=== PATIENT | female | born 1970 | race Caucasian/White ===

== ENCOUNTER 2022-11-27 22:20 | Observation (INO) ==
--- NOTE | 2022-11-27 22:27 | Emergency Department Note ---
Abdominal Pain HPI General Chief Complaint: Abdominal Pain Stated Complaint: upper abd. pain Time Seen by Provider: 11/27/22 22:27 Source: patient and family (Daughter present ) Mode of arrival: ambulatory Limitations: no limitations History of Present Illness HPI Narrative: Narrative: 52-year-old female presents to the emergency department complaining of abdominal pain. States it started 2 hours ago. Burning sensation. Constant. Epigastric area. Tried yogurt and that did not make it any better. Rates the pain as an 8 on a 0-to-10 scale. No radiation to the back. Not associated with trauma. States she had the same pain about 24 hours ago but it resolved. States she has had this pain a couple times in her life. Patient has nausea with this pain. Past medical history includes thyroid disease, hyperglycemia, migraines. Patient takes clonazepam. Social history: Patient smokes tobacco. Does not drink alcohol. Uses marijuana. Related Data Home Medications Medication Instructions Recorded Confirmed levothyroxine 88 mcg capsule 88 mcg PO QDAY 12/14/21 11/28/22 clonazepam 1 mg tablet 1 mg PO BID PRN Anxiety 11/28/22 11/28/22 Previous Rx's Medication Instructions Recorded prazosin 1 mg capsule 1 mg PO BID 30 days #60 caps 06/19/22 venlafaxine 150 mg 300 mg PO QDAY #60 caps 06/19/22 capsule,extended release 24 hr Allergies Allergy/AdvReac Type Severity Reaction Status Date / Time codeine Allergy Mild Vomiting Verified 06/19/22 08:28 Review of Systems ROS ROS Narrative: Narrative: Constitutional: Denies fever Eyes: Denies eye discharge ENT ED: Denies throat pain or rhinorrhea Cardiovascular: Denies chest pain Respiratory: Denies shortness of breath Gastrointestinal: Reports abdominal pain and nausea Genitourinary: Denies dysuria Musculoskeletal: Denies back pain Integumentary: Denies rash Neurological: Reports headache (History of migraines.) Psychiatric: Reports depression Endocrine: Reports other (Thyroid disorder.) [facility] Narrative Patient History Narrative: Narrative: Medical/Surgical/Family History All Active Problems Acute cholecystitis (Acute) Cholelithiasis (Acute) Right upper quadrant abdominal pain (Acute) Major depressive disorder, recurrent (Acute) Carpal tunnel syndrome (Chronic) Attempted suicide (Chronic) Other reactions to severe stress (Chronic) Generalized anxiety disorder (Acute) Personality disorder (Chronic) PTSD (post-traumatic stress disorder) (Chronic) Depression (Chronic) Anxiety (Chronic) Sinusitis (Acute) Influenza B (Acute) Medical History Anxiety Attempted suicide Carpal tunnel syndrome Depression Generalized anxiety disorder with panic attacks Other reactions to severe stress Personality disorder PTSD (post-traumatic stress disorder) Surgical History No pertinent past surgical history Family History Son ADHD, predominantly inattentive type Daughter ADHD (attention deficit hyperactivity disorder), combined type Sister Bipolar disorder, unspecified reportedly (he is 7 years younger than her) Sister Bipolar disorder, unspecified Other No pertinent family history Social History Smoking Status: Current every day smoker Alcohol Intake Frequency: holiday/special occasion only Substance Use: marijuana Exam Narrative Narrative: Narrative: General Limitations: no limitations General appearance: Present alert and in distress (Moderately severe discomfort) Head Head: Present atraumatic and normocephalic Eye Eye: Present normal appearance Neck Neck: Present normal inspection Chest Chest: Present symmetric chest wall rise Respiratory Respiratory: Present normal lung sounds bilaterally; Absent respiratory distress Cardiovascular Cardiovascular: Present regular rate and normal rhythm Adbominal Abdominal: Present soft and tenderness (Tenderness above the umbilicus and below the xiphoid and this midline.) Extremities Extremities: Present normal inspection Back Back: Present normal inspection; Absent tenderness Neurological Neurological: Present alert and oriented X3 Psychiatric Psychiatric: Present normal affect and normal mood Skin Skin: Present warm (WNL) and dry Course Reevaluation(s) Reevaluation #1: Patient is sleeping but easily awakened. States the pain is much better and does not want any additional pain medicine. Patient received half milligram of Dilaudid. I advised patient that we would keep her until the morning when we do an MRCP. I advised her that she will be NPO. I discussed all this in the presence of her daughter. I reviewed the results of the ultrasound which suggest acute cholecystitis and there is also blood test which shows elevated LFTs. Time: 01:02 Consultations Consultation #1: Discussed with the surgeon on-call Dr. Gordon. He advised that we need to get an MRCP. Asked that we keep the patient in the emergency department tonight until the morning when we can obtain that test and then call him with the results. Time: 00:30 Vital Signs Vital signs: Vital Signs Temperature 96.8 F L 11/27/22 22:21 Pulse Rate 65 11/27/22 22:21 Respiratory Rate 18 11/27/22 22:21 Blood Pressure 170/109 11/27/22 22:21 Pulse Oximetry (%) 99 11/27/22 22:21 Oxygen Delivery Method 11/27/22 22:21 Temperature 97.0 F 11/28/22 23:45 Pulse Rate 66 11/28/22 23:45 Respiratory Rate 14 11/28/22 23:45 Blood Pressure 143/95 11/28/22 23:45 Pulse Oximetry (%) 96 11/28/22 23:45 Oxygen Delivery Method 11/28/22 23:45 Oxygen Flow Rate (L/min) 0 11/28/22 20:00 [facility] MDM Narrative Medical decision making narrative: Narrative: Middle-aged female with a relatively acute onset abdominal pain 2 hours ago. Differential includes biliary disease, cholecystitis, peptic ulcer disease, pancreatitis, GERD, other Will obtain a lipase to evaluate for pancreatitis. Will obtain a hepatic panel to evaluate for cholecystitis or biliary disease. We will give the patient Protonix 40 mg IV because of the possibility of GERD. Will medicate patient with Dilaudid 0.5 mg along with Zofran 4 mg to address her immediate discomfort and nausea. Patient may require CT abdomen for further evaluation but I will wait until I evaluated blood test results and seen her response to therapy. Patient will be bolused 1 L of normal saline. White count is low at 3.6 with a normal hemoglobin at 13.1 and a normal differential. Lactic acid level was normal at 0.8. Electrolytes were normal. Glucose was elevated at 138 but the BUN and creatinine were both normal. Total bilirubin was elevated at 1.8 with a direct bili elevated at 1.1. AST was high at 798 and the ALT was high at 826. Lipase was normal. Ultrasound: Impression the findings suggest acute cholecystitis with intra and extrahepatic biliary ductal dilatation. Preliminary report. Case discussed with Dr. Gordon the general surgeon on-call. He requested the patient get an MRCP to look for possible distal common bile duct stone. That test will be performed in the morning. Ultrasound final report:IMPRESSION: Cholecystitis. Moderate common bile duct d ilatation suggest the possibility of distal common bile duct stone which is not visualized sonographically. I have signed the case out to my colleague Dr. Rodrigues who will follow-up on the MRCP results and advise the general surgeon. Sepsis Sepsis Identified: No Lab Data Result diagrams: 11/27/22 22:45 Labs: Lab Results 11/27/22 11/27/22 11/27/22 Range/Units 22:45 22:45 22:51 WBC 3.6 L (4.5-11.0) K/mcL RBC 4.75 (3.59-5.38) M/mcL Hgb 13.1 (11.2-15.7) g/dL Hct 39.7 (34.1-44.9) % POC Hct 41.0 (36-48) MCV 83.6 (80.0-100.0) fL MCH 27.6 (26.0-34.0) pg MCHC 33.0 (31.0-36.0) g/dL RDW 12.5 (11.5-14.5) % Plt Count 246 (140-440) K/mcL MPV 9.1 (8.8-12.5) fL Immature Gran % (Auto) 0 (0.0-0.5) % Neut % (Auto) 59.4 (38.0-78.0) % Lymph % (Auto) 29.7 (15.5-49.0) % [place] % (Auto) 10.9 (1.0-12.0) % Eos % (Auto) 0 (0.0-7.0) % Baso % (Auto) 0 (0.0-2.0) % Lymph # (Auto) 1.06 L (1.50-4.80) K/mcL [place] # (Auto) 0.39 (0.10-0.90) K/mcL Eos # (Auto) 0 (0.00-0.70) K/mcL Baso # (Auto) 0 (0.00-0.30) K/mcL Immature Gran # 0 (0.00-0.05) K/mcl Absolute Neutrophils 2.12 (1.80-8.00) K/mcL VBG Lactic Acid 0.8 (0.5-2.0) mmol/L POC Sodium 140 (133-145) POC Potassium 3.3 (3.3-5.1) POC Chloride 103 (96-108) POC Total CO2 28.0 (22-30) POC BUN 16 (6-20) POC Creatinine 0.7 (0.6-1.2) POC Glucose 138 H (70-105) POC WB Ioniz Calcium 1.04 L (1.16-1.32) Total Bilirubin 1.8 H (0.1-1.0) mg/dL Direct Bilirubin 1.1 H (<0.3) mg/dL AST 798 H (<32) U/L ALT 826 H (<40) U/L Alkaline Phosphatase 171 H (39-117) U/L Total Protein 7.1 (5.9-8.4) gm/dL Albumin 4.2 (3.2-5.2) gm/dL Globulin 2.9 (2.2-3.7) gm/dL Lipase 41 (7-60) U/L Urine Color Urine Appearance (Clear) Urine pH (5.0-9.0) Ur Specific [place] (1.000-1.035) Urine Protein (Negative) mg/dL Urine Glucose (UA) (Negative) mg/dL Urine Ketones (Negative) mg/dL Urine Occult Blood (Negative) marisela/mcL Urine Nitrate (Negative) Urine Bilirubin (Negative) mg/dL Urine Urobilinogen mg/dL Ur Leukocyte Esterase (Negative) /uL Urine RBC (0-1) /hpf Urine WBC (0-4) /hpf Ur Squamous Epith Cells (0-4) /hpf Urine Bacteria (0) /hpf Urine Mucus (None) /hpf Ur Culture Indicated? 11/28/22 Range/Units 01:10 WBC (4.5-11.0) K/mcL RBC (3.59-5.38) M/mcL Hgb (11.2-15.7) g/dL Hct (34.1-44.9) % POC Hct (36-48) MCV (80.0-100.0) fL MCH (26.0-34.0) pg MCHC (31.0-36.0) g/dL RDW (11.5-14.5) % Plt Count (140-440) K/mcL MPV (8.8-12.5) fL Immature Gran % (Auto) (0.0-0.5) % Neut % (Auto) (38.0-78.0) % Lymph % (Auto) (15.5-49.0) % [place] % (Auto) (1.0-12.0) % Eos % (Auto) (0.0-7.0) % Baso % (Auto) (0.0-2.0) % Lymph # (Auto) (1.50-4.80) K/mcL [place] # (Auto) (0.10-0.90) K/mcL Eos # (Auto) (0.00-0.70) K/mcL Baso # (Auto) (0.00-0.30) K/mcL Immature Gran # (0.00-0.05) K/mcl Absolute Neutrophils (1.80-8.00) K/mcL VBG Lactic Acid (0.5-2.0) mmol/L POC Sodium (133-145) POC Potassium (3.3-5.1) POC Chloride (96-108) POC Total CO2 (22-30) POC BUN (6-20) POC Creatinine (0.6-1.2) POC Glucose (70-105) POC WB Ioniz Calcium (1.16-1.32) Total Bilirubin (0.1-1.0) mg/dL Direct Bilirubin (<0.3) mg/dL AST (<32) U/L ALT (<40) U/L Alkaline Phosphatase (39-117) U/L Total Protein (5.9-8.4) gm/dL Albumin (3.2-5.2) gm/dL Globulin (2.2-3.7) gm/dL Lipase (7-60) U/L Urine Color Yellow Urine Appearance Sl cloudy A (Clear) Urine pH 7.0 (5.0-9.0) Ur Specific [place] 1.020 (1.000-1.035) Urine Protein Negative (Negative) mg/dL Urine Glucose (UA) Negative (Negative) mg/dL Urine Ketones Negative (Negative) mg/dL Urine Occult Blood Large A (Negative) marisela/mcL Urine Nitrate Negative (Negative) Urine Bilirubin Negative (Negative) mg/dL Urine Urobilinogen 2.0 A mg/dL Ur Leukocyte Esterase Negative (Negative) /uL Urine RBC > 182 H (0-1) /hpf Urine WBC 4 (0-4) /hpf Ur Squamous Epith Cells 3 (0-4) /hpf Urine Bacteria None (0) /hpf Urine Mucus Many A (None) /hpf Ur Culture Indicated? No Discharge Plan Patient/Caregiver Discharge Instructions Pt seen by SPARE PARTS CLERK/PA only: No Clinical Impression: Acute cholecystitis, Cholelithiasis, Right upper quadrant abdominal pain Patient Disposition: Xfer As Outpt/Obs ([facility]) Condition: Fair Discharge Date/Time: 11/28/22 12:59
[2022-11-27] MEDS ORDERED: ONDANSETRON 4 MG/2 ML VIAL IV ONE (22:34)
[2022-11-27] MEDS ORDERED: 0.9 % SODIUM CHLORIDE 1,000 ML IV ONE (22:34)
[2022-11-27] MEDS ORDERED: HYDROmorphone 0.5 MG/0.5 ML SYRINGE IV ONE (22:34)
[2022-11-27] MEDS ORDERED: PANTOPRAZOLE 40 MG VIAL IV ONE (22:39)
[2022-11-27 22:54] LABS: POC Calcium, Ionized 1.04 (1.16-1.32); POC Creatinine 0.7 (0.6-1.2); POC Potassium 3.3 (3.3-5.1)
[2022-11-27 23:31] LABS: Basophils # (Auto) 0 K/mcL (0.00-0.30); Basophils % (Auto) 0 % (0.0-2.0); Eosinophils # (Auto) 0 K/mcL (0.00-0.70); Eosinophils % (Auto) 0 % (0.0-7.0); Hematocrit 39.7 % (34.1-44.9); Hemoglobin 13.1 g/dL (11.2-15.7); Lymphocytes # (Auto) 1.06 K/mcL (1.50-4.80); Lymphocytes % (Auto) 29.7 % (15.5-49.0); Mean Cell Volume 83.6 fL (80.0-100.0); Mean Platelet Volume 9.1 fL (8.8-12.5); Monocytes # (Auto) 0.39 K/mcL (0.10-0.90); Monocytes % (Auto) 10.9 % (1.0-12.0); Neutrophils % (Auto) 59.4 % (38.0-78.0); Platelet Count 246 K/mcL (140-440); RBC 4.75 M/mcL (3.59-5.38); Red Cell Distribution Width 12.5 % (11.5-14.5); WBC 3.6 K/mcL (4.5-11.0)
[2022-11-28 00:07] LABS: ALT/SGPT 826 U/L (<40); AST/SGOT 798 U/L (<32); Albumin 4.2 gm/dL (3.2-5.2); Alkaline Phosphatase 171 U/L (39-117); Bilirubin,Direct 1.1 mg/dL (<0.3); Bilirubin,Total 1.8 mg/dL (0.1-1.0); Globulin 2.9 gm/dL (2.2-3.7)
[2022-11-28 01:55] LABS: Appearance,Urine SL CLOUDY (Clear); Bilirubin,Urine Negative (Negative); Color,Urine YELLOW; Culture Indicated,Urine No; Glucose,Urine (UA) NEGATIVE (Negative); Ketones,Urine NEGATIVE (Negative); Leukocyte Esterase,Urine NEGATIVE /uL (Negative); Mucus,Urine MANY /hpf; Nitrate,Urine NEGATIVE (Negative); Protein,Urine NEGATIVE (Negative); Urine Blood LARGE ery/mcL (Negative); Urine RBC > 182 /hpf (0-1); Urine Squamous Epithelial Cell 3 /hpf (0-4); Urine WBC 4 /hpf (0-4)
--- NOTE | 2022-11-28 03:12 | Ultrasound Report ---
CLINICAL INFORMATION: Epigastric pain COMPARISON: None. FINDINGS: Multiple stones present within the gallbladder with pericholecystic fluid. The bladder wall is normal thickness at 3 mm. Mild pain over the gallbladder-positive sonographic Davis's sign. Common bile duct is moderately dilated-8 mm. No stone visualized. Liver is normal size and diffusely hyperechoic suggesting fatty change-no focal hepatic lesion. Pancreas is normal. No free fluid. IMPRESSION: Cholecystitis. Moderate common bile duct dilatation suggest the possibility of distal common bile duct stone which is not visualized sonographically. Interpreted and Authenticated by: Joaquin Lopez 11/28/22
--- NOTE | 2022-11-28 07:59 | Emergency Department Note ---
Course Course Course Narrative: Patient previously seen by Dr. Draper. I assumed care of the patient at 0700 hrs. She presented with abdominal pain and her work-up did show that she had cholelithiasis and there is a mild to moderate white count elevation of 14 with concern for possible Yulissa cystitis. Dr. Draper did speak with Dr. Gordon, general surgeon on-call, he suggested an MRCP to get a better understanding of what is happening. The MRCP has been ordered and is pending at this time (9121). JGJ 0940: Reviewed patient's MRI report does show that she has a mild amount of pericholecystic surrounding fluid suggestive of cholecystitis. She also has cholelithiasis. Intrahepatic common bile ducts are normal caliber with no evidence of choledocholithiasis. 0950: Attempted contacting Dr. Gordon, General surgeon, ED [employer] left message for Dr. Gordon to call back. 1052: Spoke with Dr. Gordon, he is already seen the patient reviewed the MR CP and feels that the patient should come in and he will likely remove her gallbladder tomorrow. I advised him that the patient wants to leave today and schedule surgery for another time. He says he feels likely secondary to just wanting to smoke. I will offer nicotine patch reevaluated patient. He will write orders for admission soon as he can. He is already started by the surgeon. 1104: Advised CARI Covarrubias that patient may have clear liquids only. Reevaluation(s) Reevaluation #1: Reevaluated, stable. Patient would like to go outside to smoke. Advised her we cannot allow her to do that when she is a patient in the hospital but we could provide her with a NicoDerm patch. She smokes about half pack per day. She is agreeable with this plan. I did encourage her to stay to get her gallbladder taken care of rather than waiting and doing it as an outpatient since she has infection of the gallbladder and that that could worsen significantly if is not taken out sooner. She is were with staying in the hospital and going through with admission and cholecystectomy. She also request that she have ice chips or water. I have advised her that Dr. Gordon said that she could have clear liquids. We will get her something to drink. Will order nicotine patch 14 mg. Time: 11:00 Consultations Consultation #1: Spoke with Dr. Gordon, General Surgeon. Discussed MRCP results showing cholelithiasis with small amount of pericholecystic fluid suggesting cholecystitis. Vital Signs Vital signs: Vital Signs Temperature 96.8 F L 11/27/22 22:21 Pulse Rate 65 11/27/22 22:21 Respiratory Rate 18 11/27/22 22:21 Blood Pressure 170/109 11/27/22 22:21 Pulse Oximetry (%) 99 11/27/22 22:21 Oxygen Delivery Method 11/27/22 22:21 Temperature 96.8 F L 11/27/22 22:21 Pulse Rate 77 11/28/22 10:54 Respiratory Rate 18 11/27/22 22:21 Blood Pressure 129/81 11/28/22 10:54 Pulse Oximetry (%) 98 11/28/22 10:54 Oxygen Delivery Method 11/27/22 22:21 MDM MDM Narrative Medical decision making narrative: Narrative: Patient presents emerged part with complaint of abdominal pain. She did have original CT which showed cholelithiasis. Dr. Draper, preceding ED provider did speak with Dr. Gordon, general surgeon on-call who asked that the patient get an MRCP in the morning and if this did show that she had cholecystitis then we were going to bring her and. She did have that MRCP which did show that she had some mild pericholecystic fluid suggesting cholecystitis and some cholelithiasis. It did not show any evidence of biliary tree distention or common bile duct distention. It is possible that she may have passed a stone which caused her mid epigastric abdominal pain. She has been seen and evaluated by Dr. Gordon, he will bring her to the hospital and with plan to get her on tomorrow for cholecystectomy. Patient initially concerned that she went to go outside and have a cigarette but she has been advised were not out to let her do that while she is a patient in the hospital but we can provide a nicotine patch for her. She states understanding of and is agreeable with this plan. She will be admitted to the hospital under Dr. Gordon's service. Admission orders pending as he is currently in a procedure at 1108 hrs. Sepsis Sepsis Identified: No Differential Diagnosis Differential Diagnosis: Cholecystitis, cholelithiasis, biliary tree ductal occlusion. Medical Records Medical records reviewed: Yes I reviewed the patient's medical records. Lab Data Lab results reviewed: Yes I reviewed the patient's lab results. Result diagrams: 11/27/22 22:45 Labs: Lab Results 11/27/22 11/27/22 11/27/22 Range/Units 22:45 22:45 22:51 WBC 3.6 L (4.5-11.0) K/mcL RBC 4.75 (3.59-5.38) M/mcL Hgb 13.1 (11.2-15.7) g/dL Hct 39.7 (34.1-44.9) % POC Hct 41.0 (36-48) MCV 83.6 (80.0-100.0) fL MCH 27.6 (26.0-34.0) pg MCHC 33.0 (31.0-36.0) g/dL RDW 12.5 (11.5-14.5) % Plt Count 246 (140-440) K/mcL MPV 9.1 (8.8-12.5) fL Immature Gran % (Auto) 0 (0.0-0.5) % Neut % (Auto) 59.4 (38.0-78.0) % Lymph % (Auto) 29.7 (15.5-49.0) % [place] % (Auto) 10.9 (1.0-12.0) % Eos % (Auto) 0 (0.0-7.0) % Baso % (Auto) 0 (0.0-2.0) % Lymph # (Auto) 1.06 L (1.50-4.80) K/mcL [place] # (Auto) 0.39 (0.10-0.90) K/mcL Eos # (Auto) 0 (0.00-0.70) K/mcL Baso # (Auto) 0 (0.00-0.30) K/mcL Immature Gran # 0 (0.00-0.05) K/mcl Absolute Neutrophils 2.12 (1.80-8.00) K/mcL VBG Lactic Acid 0.8 (0.5-2.0) mmol/L POC Sodium 140 (133-145) POC Potassium 3.3 (3.3-5.1) POC Chloride 103 (96-108) POC Total CO2 28.0 (22-30) POC BUN 16 (6-20) POC Creatinine 0.7 (0.6-1.2) POC Glucose 138 H (70-105) POC WB Ioniz Calcium 1.04 L (1.16-1.32) Total Bilirubin 1.8 H (0.1-1.0) mg/dL Direct Bilirubin 1.1 H (<0.3) mg/dL AST 798 H (<32) U/L ALT 826 H (<40) U/L Alkaline Phosphatase 171 H (39-117) U/L Total Protein 7.1 (5.9-8.4) gm/dL Albumin 4.2 (3.2-5.2) gm/dL Globulin 2.9 (2.2-3.7) gm/dL Lipase 41 (7-60) U/L Urine Color Urine Appearance (Clear) Urine pH (5.0-9.0) Ur Specific [place] (1.000-1.035) Urine Protein (Negative) mg/dL Urine Glucose (UA) (Negative) mg/dL Urine Ketones (Negative) mg/dL Urine Occult Blood (Negative) marisela/mcL Urine Nitrate (Negative) Urine Bilirubin (Negative) mg/dL Urine Urobilinogen mg/dL Ur Leukocyte Esterase (Negative) /uL Urine RBC (0-1) /hpf Urine WBC (0-4) /hpf Ur Squamous Epith Cells (0-4) /hpf Urine Bacteria (0) /hpf Urine Mucus (None) /hpf Ur Culture Indicated? 11/28/22 Range/Units 01:10 WBC (4.5-11.0) K/mcL RBC (3.59-5.38) M/mcL Hgb (11.2-15.7) g/dL Hct (34.1-44.9) % POC Hct (36-48) MCV (80.0-100.0) fL MCH (26.0-34.0) pg MCHC (31.0-36.0) g/dL RDW (11.5-14.5) % Plt Count (140-440) K/mcL MPV (8.8-12.5) fL Immature Gran % (Auto) (0.0-0.5) % Neut % (Auto) (38.0-78.0) % Lymph % (Auto) (15.5-49.0) % [place] % (Auto) (1.0-12.0) % Eos % (Auto) (0.0-7.0) % Baso % (Auto) (0.0-2.0) % Lymph # (Auto) (1.50-4.80) K/mcL [place] # (Auto) (0.10-0.90) K/mcL Eos # (Auto) (0.00-0.70) K/mcL Baso # (Auto) (0.00-0.30) K/mcL Immature Gran # (0.00-0.05) K/mcl Absolute Neutrophils (1.80-8.00) K/mcL VBG Lactic Acid (0.5-2.0) mmol/L POC Sodium (133-145) POC Potassium (3.3-5.1) POC Chloride (96-108) POC Total CO2 (22-30) POC BUN (6-20) POC Creatinine (0.6-1.2) POC Glucose (70-105) POC WB Ioniz Calcium (1.16-1.32) Total Bilirubin (0.1-1.0) mg/dL Direct Bilirubin (<0.3) mg/dL AST (<32) U/L ALT (<40) U/L Alkaline Phosphatase (39-117) U/L Total Protein (5.9-8.4) gm/dL Albumin (3.2-5.2) gm/dL Globulin (2.2-3.7) gm/dL Lipase (7-60) U/L Urine Color Yellow Urine Appearance Sl cloudy A (Clear) Urine pH 7.0 (5.0-9.0) Ur Specific [place] 1.020 (1.000-1.035) Urine Protein Negative (Negative) mg/dL Urine Glucose (UA) Negative (Negative) mg/dL Urine Ketones Negative (Negative) mg/dL Urine Occult Blood Large A (Negative) marisela/mcL Urine Nitrate Negative (Negative) Urine Bilirubin Negative (Negative) mg/dL Urine Urobilinogen 2.0 A mg/dL Ur Leukocyte Esterase Negative (Negative) /uL Urine RBC > 182 H (0-1) /hpf Urine WBC 4 (0-4) /hpf Ur Squamous Epith Cells 3 (0-4) /hpf Urine Bacteria None (0) /hpf Urine Mucus Many A (None) /hpf Ur Culture Indicated? No Radiology Data Radiology results reviewed: Yes I reviewed the patient's radiology results. Radiology results narrative: CT abdomen pelvis did show that she had cholelithiasis with potential ductal distention of the biliary tree or the common bile duct. This was followed with MRI which did not show any biliary tree or common bile duct distention but did show that she had cholelithiasis and some's mild amount of surrounding pericholecystic fluid. Please see all radiology reports for full details. Discharge Plan Patient/Caregiver Discharge Instructions Pt seen by PHOTOGRAPHIC EDITOR/PA only: No Clinical Impression: Acute cholecystitis, Cholelithiasis, Right upper quadrant abdominal pain Patient Disposition: Xfer As Outpt/Obs ([facility]) Condition: Fair Follow up with: Danyel Dave ARNP [Primary Care Provider] - Prescriptions: No Action levothyroxine 88 mcg capsule 88 mcg PO QDAY prazosin 1 mg capsule 1 mg PO BID 30 Days Qty: 60 3RF clonazepam 1 mg tablet 1 mg PO BID Qty: 60 2RF venlafaxine 150 mg capsule,extended release 24hr 300 mg PO QDAY Qty: 60 2RF
--- NOTE | 2022-11-28 09:01 | Magnetic Resonance Report ---
CLINICAL INFORMATION: Upper abdominal pain COMPARISON: None. TECHNIQUE: MRCP was performed using 3D FRFSE respiratory triggered and single-shot FSE thick slab technique. Axial T2 SSFSE and coronal SSFSE images were obtained through the upper abdomen as well. FINDINGS: Multiple stones within the gallbladder. Gallbladder wall is normal thickness.. There is trace pericholecystic fluid on the T2 images which is suggestive, but not diagnostic, of associated cholecystitis. Intrahepatic, common hepatic and common bile ducts are normal in caliber: CBD is 5 mm. There is no evidence of choledocholithiasis. The liver, pancreas, including pancreatic ducts, both kidneys, adrenal glands, spleen and aorta are normal in size configuration and signal intensity. There is no free air, free fluid or adenopathy. Stomach and visualized small /large bowel are normal. Lung bases show no abnormality. IMPRESSION: Cholelithiasis. Small amount of pericholecystic fluid on the T2 images suggests associated cholecystitis Intrahepatic common hepatic common bile ducts are normal caliber no evidence of choledocholithiasis. Interpreted and Authenticated by: Joaquin Lopez 11/28/22
[2022-11-28] MEDS ORDERED: NICOTINE 14 MG PATCH TOPICAL ONE (11:03)
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
[2022-11-28] MEDS: DEXTROSE 5%-LR 1,000 ML IV SCH (15:07)
--- NOTE | 2022-11-28 17:29 | EKG ---
[facility] Test Date: 2022-11-28 Pat Name: Jackie Saenz Department: ED Room: Gender: Female Credit Checker: : 1970 Requested By: Eugene Samano Order Number: [id number] Reading MD: Sarmad Doran D.O. Measurements Intervals Mcintosh Rate: 62 P: 63 KS: 163 QRS: 43 QRSD: 90 T: 63 QT: 452 QTc: 460 Interpretive Statements Sinus rhythm Electronically Signed On 11-28-2022 17:28:47 PST by Sarmad Doran D.O. /store/M0/[id number]
[2022-11-28] MEDS: HYDROmorphone 0.5 MG/0.5 ML SYRINGE IV PRN (21:31)
[2022-11-28] MEDS ORDERED: ONDANSETRON 4 MG/2 ML VIAL IV PRN (22:05)
[2022-11-28] MEDS ORDERED: clonazePAM 1 MG TABLET PO PRN (22:08)
[2022-11-29] MEDS: HYDROmorphone 0.5 MG/0.5 ML SYRINGE IV PRN ×5 (01:00→19:57)
[2022-11-29] MEDS: DEXTROSE 5%-LR 1,000 ML IV SCH ×2 (04:18→15:22)
[2022-11-29] MEDS ORDERED: ONDANSETRON 4 MG/2 ML VIAL ONE ×2 (06:01→11:30)
[2022-11-29 06:34] LABS: Hematocrit 42.5 % (34.1-44.9); Hemoglobin 13.7 g/dL (11.2-15.7); Mean Cell Volume 86.7 fL (80.0-100.0); Mean Corpuscular HGB Conc 32.2 g/dL (31.0-36.0); Mean Platelet Volume 9.1 fL (8.8-12.5); Platelet Count 222 K/mcL (140-440); Red Cell Distribution Width 12.7 % (11.5-14.5); WBC 2.3 K/mcL (4.5-11.0)
[2022-11-29 06:54] LABS: Amylase 39 U/L (28-100)
[2022-11-29 07:03] LABS: ALT/SGPT 562 U/L (<40); AST/SGOT 256 U/L (<32); Albumin 3.8 gm/dL (3.2-5.2); Albumin/Globulin Ratio 1.5 (1.0-2.3); Alkaline Phosphatase 157 U/L (39-117); Bilirubin,Total 0.9 mg/dL (0.1-1.0); Blood Urea Nitrogen 7 mg/dL (6-20); Calcium 8.5 mg/dL (8.6-10.4); Carbon Dioxide 30 mmol/L (22-30); Chloride 104 mmol/L (96-108); Globulin 2.5 gm/dL (2.2-3.7); Glomerular Filtration Rate 99; Glucose 94 mg/dL (70-105)
[2022-11-29] MEDS: LEVOTHYROXINE 88 MCG TABLET PO SCH (07:41)
[2022-11-29] MEDS ORDERED: PRAZOSIN 1 MG CAPSULE PO SCH (09:00)
[2022-11-29] MEDS: VENLAFAXINE 150 MG CAP.XL.24H PO SCH (09:51)
--- NOTE | 2022-11-29 10:47 | General Surgery Progress Note ---
SUBJECTIVE Subjective Patient information: Note initiated : 11/29/22 at 10:47 am Service Date, if different from initiated Date: [] Patient: Jackie Saenz 52 y/o F admitted on 11/28/22 for upper abd. pain. Chief Complaint: [] Feeling well this am, has now decided she would prefer to have surgery prior to discharge Constitutional Vitals: Vital Signs Temp Pulse Resp BP Pulse Ox O2 Del Method O2 Flow Rate 98.0 F 66 16 161/103 97 0 11/29/22 07:21 11/29/22 07:21 11/29/22 07:21 11/29/22 07:21 11/29/22 07:21 11/29/22 07:21 11/28/22 20:00 Period Temp Pulse Resp BP Sys/Davidson Pulse Ox O2 Del Method O2 Flow Rate Last 24 Hr 97.0 F-98.2 F 66-85 14-18 129-161/81-103 96-99 Room Air-Room Air 0 Intake and Output 11/28/22 11/29/22 11/29/22 19:59 03:59 11:59 Intake Total 1999 1339 Output Total 550 0 Balance 1450 1339 Weight 139 lb Intake & Output: Intake & Output 11/28/22 11/29/22 11/29/22 19:59 03:59 11:59 Intake Total 1999 1339 Output Total 550 0 Balance 1450 1339 Weight 139 lb Intake: IV 1000 989 Sodium Chloride 0.9% 1,000 ml @ 1000 Wide Open IV [facility] Rx#: [id number] Dextrose 5%-Lactated Ringers 1, 989 000 ml @ 75 mls/hr IV .[id number] [facility] Rx#:[id number] Oral 1000 350 Output: Void Amount 550 0 Other: Meal Dinner Percent of Meal Consumed 100% Urine Appearance Clear Clear Urine Color Dark Yellow Light Dian [place] Urine Odor Normal # Voids 2 Exam: Fully alert, conversant, non toxic Respiratory Respiratory exam: Present normal respiratory exam Cardiovascular Cardiovascular exam: Present RRR GI/Abdominal Additional comments: soft and non tender, no distension Extremities Exam Additional comments: well perfused A/P Assessment and plan (1) Cholelithiasis: Assessment and plan: Symptomatic Cholelithiasis Will proceed with Cholecystectomy today Risks, benefits, potential complications and alternative treatment options have and are all reviewed at length including but not limited to infection, bleeding, conversion to open, drain placement, bile leak, injury to surrounding structures, possible need for partial or fenestrating subtotal removal and othe rs as well and she would like to go ahead Status: Acute Time Spent With Patient Time: Total time spent is greater than 50% in coordination of care (as documented) at patient's floor/unit and/or counseling patient:
[2022-11-29] MEDS ORDERED: cefTRIAXone 1 GM VIAL IV ONE (11:23)
[2022-11-29] MEDS ORDERED: MAGNESIUM SULFATE 2 GM/50 ML BAG IV ONE (11:30)
[2022-11-29] MEDS ORDERED: DEXAMETHASONE 10 MG/ML VIAL ONE (11:30)
[2022-11-29] MEDS ORDERED: KETAMINE 50 MG/ML Syringe (ANEST) IV ONE (11:30)
[2022-11-29] MEDS ORDERED: LIDOCAINE HCL/PF 100 MG/5 ML SYRINGE IV ONE (11:30)
[2022-11-29] MEDS ORDERED: fentaNYL 100 MCG/2 ML VIAL IV ONE (11:30)
[2022-11-29] MEDS ORDERED: ROCURONIUM 10 MG/ML ML IV ONE (11:30)
[2022-11-29] MEDS ORDERED: SUGAMMADEX SODIUM 200 MG/2 ML VIAL IV ONE (11:30)
[2022-11-29] MEDS ORDERED: HYDROmorphone 0.5 MG/0.5 ML SYRINGE IV PRN (12:48)
[2022-11-29] MEDS ORDERED: ONDANSETRON 4 MG/2 ML VIAL IV PRN (12:48)
[2022-11-29] MEDS ORDERED: diphenhydrAMINE 50 MG/ML VIAL IV PRN (12:48)
[2022-11-29] MEDS ORDERED: IPRATROPIUM/ALBUTEROL 3 ML AMPUL.NEB NEB PRN (12:48)
[2022-11-29] MEDS ORDERED: ACETAMINOPHEN 1,000 MG/100 ML BAG IV ONE (12:48)
[2022-11-29] MEDS ORDERED: NALOXONE HCL 0.4 MG/ML VIAL IV PRN (12:48)
[2022-11-29] MEDS ORDERED: LACTATED RINGERS 250 ML IV PRN (12:48)
[2022-11-29] MEDS ORDERED: PROMETHAZINE 25 MG/ML VIAL IV PRN (12:48)
[2022-11-29] MEDS ORDERED: MEPERIDINE 25 MG/ML VIAL IV PRN (12:48)
[2022-11-29] MEDS ORDERED: BUPIVACAINE W/EPI 0.25% 50 ML VIAL IJ ONE (12:59)
[2022-11-29] MEDS ORDERED: LACTATED RINGERS 1,000 ML IV SCH (13:00)
[2022-11-29] MEDS: hydrALAZINE 20 MG/ML VIAL IV SCH ×2 (13:49→14:30)
[2022-11-29] MEDS: fentaNYL 100 MCG/2 ML VIAL IV PRN ×2 (13:56→13:59)
--- NOTE | 2022-11-29 15:18 | Brief Operative Note ---
Brief Operative Note Date of procedure: 11/29/22 Pre-op diagnosis: Symptomatic Cholelithiasis Post-op diagnosis: same Procedure: Laparoscopic Cholecystectomy Grafts/Implants: No Anesthesia: GETA Findings: Mildly inflamed gallbladder with numerous small stones Complications: none Surgeon: Khang Gordon Estimated blood loss (cc): 5 Specimens Removed/Pathology: other (gallbladder ) Condition: stable Disposition: PACU
[2022-11-29] MEDS: oxyCODONE HCL 5 MG TABLET PO PRN (16:15)
[2022-11-30] MEDS: HYDROmorphone 0.5 MG/0.5 ML SYRINGE IV PRN ×2 (00:26→10:58)
[2022-11-30] MEDS: DEXTROSE 5%-LR 1,000 ML IV SCH (05:51)
[2022-11-30] MEDS: LEVOTHYROXINE 88 MCG TABLET PO SCH (07:42)
[2022-11-30] MEDS: oxyCODONE HCL 5 MG TABLET PO PRN (07:45)
--- NOTE | 2022-11-30 08:35 | Operative Note ---
DATE OF OPERATION: 11/28/2022 PREOPERATIVE DIAGNOSIS: Symptomatic cholelithiasis. POSTOPERATIVE DIAGNOSIS: Symptomatic cholelithiasis. OPERATIVE PROCEDURE: Laparoscopic cholecystectomy. SURGEON: Khang Gordon M.D. ANESTHESIA: General. PREOPERATIVE MEDICATIONS: Ceftriaxone 1 mg IV. INDICATIONS FOR PROCEDURE: The patient is a 52-year-old female who was seen in the ER recently with increasing abdominal pain and discomfort. An ultrasound and MRCP were obtained, which demonstrated gallstones in the gallbladder, but no evidence of overt cholecystitis, although she did have a mild amount of potential pericholecystic edema and/or fluid. She had elevated LFTs, consistent with potentially a passed stone that dramatically improved over the next 24 hours or so. We recommended gallbladder removal given what we felt was likely repetitive bouts of biliary colic secondary possibly to passed common duct stones. Risks, benefits, potential complications, and alternative treatment options were all discussed at length. These include, but are not limited to bleeding, infection, cosmetic dissatisfaction, abnormal scarring, potential need for additional surgery, possible conversion to an open procedure, potential need for drain placement, possible need for partial or subtotal fenestrating cholecystectomy and other issues as well. She gave full informed consent. PROCEDURE IN DETAIL: The patient was taken to the OR and placed supine on the OR table, placed under general anesthesia and intubated. Bilateral SCDs were applied. All pressure sensitive areas were carefully padded. Her arms were tucked at her sides. The abdomen was then widely prepped and draped in a sterile fashion. Procedure began with peritoneal access in the right upper abdomen utilizing a 0-degree 5 mm scope through a Visiport in the right upper abdomen utilizing a 5 mm trocar. Once we obtained peritoneal access, pneumoperitoneum was obtained with high-flow CO2 insufflation. We then examined the area of access to make sure there was no evidence of injury; none was seen. We then changed out the 0-degree scope for a 30-degree scope without difficulty. We then placed our remaining trocars. This included a 5 mm periumbilical trocar, an additional 5 mm right upper abdominal trocar and a 12 mm midepigastric and/or subxiphoid trocar. We then re-sited the camera to the periumbilical trocar site. The patient was then placed in reverse Trendelenburg position and airplaned towards the left side. The gallbladder fundus was identified, grasped with a grasper by the fundus, and gently retracted in a cephalad direction. There were some inflammatory adhesions between the gallbladder and the underlying transverse mesocolon and duodenum and these were taken down sharply without thermal energy. Once these structures were down and away, we were then able to elevate the gallbladder more fully towards the right shoulder in a cephalad direction and obtained good exposure of the michael. The common bile duct could be seen coursing from the duodenum up into the michael without difficulty. We identified the infundibulum of the gallbladder and began our dissection of the hepatocystic triangle on the posterior aspect of this utilizing cautery. We were then able to fairly quickly dissect out the posterior and anterior hepatocystic triangles and delineate the neck of the gallbladder at its junction point with the cystic duct, which was delineated along the entire length of the incision without difficulty. We then obtained a full and clear critical view of safety and then performed a very extensive cystic plate dissection and thereby identified the cystic artery coursing up directly into the gallbladder. Small branches of this were taken down off the gallbladder, utilizing the cautery and then the main portion of this was divided between clips without difficulty. At this point, after a very extensive medial dissection and a very broad critical view of safety, we were able to transect the gallbladder at the junction of the neck and the cystic duct without difficulty utilizing the 35 mm endovascular stapler. We then grasped the neck of the gallbladder and retracted it towards the right shoulder as well and then completed the remainder of the dissection of the overlying gallbladder fossa without difficulty as most of this had already been completed. The gallbladder was then placed in an EndoCatch and removed through the right upper abdominal trocar site without difficulty. It was examined on the back table and sent to Pathology. We then irrigated the area out gently and made sure there was no active bleeding or hemorrhage; none was seen. Some of the adhesions that had been taken down previously in a sharp manner were oozing slightly and some Surgicel was applied to these. The clips on the cystic artery were identified an additional time and found to be intact without difficulty. There was no evidence of bleeding here. We irrigated out a final time and made sure there was no active bleeding or hemorrhage and no evidence of any biliary leak; none was seen. We then removed the mid epigastric upper abdominal 12 mm trocar site and closed the fascia at this level with interrupted 0 Vicryl sutures utilizing the inlet fascial closure device. We then removed our remaining trocars under direct vision without difficulty and made sure there was no active bleeding or hemorrhage; none was seen. Pneumoperitoneum was relieved without difficulty as well. The incisions were then closed with interrupted 3-0 Vicryl and 4-0 Monocryl sutures, respectively. Steri-Strips and sterile dressings were applied. The patient was awakened, extubated, and transferred to PACU in satisfactory condition without apparent complications. Sponge, needle and instrument counts were correct. Findings were as discussed above. BW:jewell Job ID: [id number] Doc ID: [id number] Khang Gordon M.D.
[2022-11-30] MEDS: VENLAFAXINE 150 MG CAP.XL.24H PO SCH (09:50)
[2022-11-30] MEDS ORDERED: NICOTINE 14 MG PATCH TOPICAL ONE (10:18)
--- NOTE | 2022-11-30 10:18 | General Surgery Progress Note ---
SUBJECTIVE Subjective Patient information: Note initiated : 11/30/22 at 10:15 am Service Date, if different from initiated Date: [] Patient: Jackie Saenz 52 y/o F admitted on 11/28/22 for upper abd. pain. Chief Complaint: [] POD #1 Lap Мария Feels well this am, eager to go home, tolerating clears without issue Constitutional Vitals: Vital Signs Temp Pulse Resp BP Pulse Ox O2 Del Method O2 Flow Rate 98.6 F 76 18 169/89 99 Room Air 0 11/30/22 04:00 11/30/22 04:00 11/30/22 04:00 11/30/22 07:47 11/30/22 04:00 11/30/22 04:00 11/30/22 04:00 Period Temp Pulse Resp BP Sys/Davidson Pulse Ox O2 Del Method O2 Flow Rate Last 24 Hr 97.4 F-98.6 F 56-99 14-29 139-206/83-116 88-100 Nasal Cannula- Simple Mask 0-6 Intake and Output 11/29/22 11/30/22 11/30/22 19:59 03:59 11:59 Intake Total 3630 2220 Output Total 1950 1400 1500 Balance 1680 -1400 720 Weight 139 lb Intake & Output: Intake & Output 11/29/22 11/30/22 11/30/22 19:59 03:59 11:59 Intake Total 3630 2220 Output Total 1950 1400 1500 Balance 1680 -1400 720 Weight 139 lb Intake: IV 930 Dextrose 5%-Lactated Ringers 1, 830 000 ml @ 75 mls/hr IV .[id number] [facility] Rx#:[id number] Oral 800 2220 IV - Manual Only 1900 Output: Void Amount 1950 1400 1500 Other: Meal Breakfast Percent of Meal Consumed 75% Feeding Ability Independent Urine Appearance Clear Clear Clear Urine Color Yellow Yellow Yellow Urine Odor Normal Normal Normal Exam: Looks good, non toxic, pleasantly conversant Respiratory Respiratory exam: Present normal respiratory exam Cardiovascular Cardiovascular exam: Present normal rate and rhythm and RRR GI/Abdominal Additional comments: soft and non tender, non distended, dressings dry Extremities Exam Additional comments: well perfused A/P Assessment and plan (1) Cholelithiasis: Assessment and plan: Post Lap Мария Doing Well Regular Diet Home Today Status: Acute Time Spent With Patient Time: Total time spent is greater than 50% in coordination of care (as documented) at patient's floor/unit and/or counseling patient:
== END 2022-11-30 12:00 | disposition home or self-care (01) ==
LOC: ED 22:20 → MEDSUR 22:20
PROVIDERS: ADMIT Surgery Surgical Critical Care; ATTEND Surgery Surgical Critical Care